=== PATIENT | female | born 1935 | race Caucasian/White ===

== ENCOUNTER 2016-06-05 15:34 | Observation (INO) | payer MEDICARE, OTHER ==
[~2016-06-05] VITALS: Ht 170.2 cm; Wt 90.9 kg
[2016-06-05] MEDS ORDERED: HYDROCHLOROTH12.5 M1 PO (16:11)
[2016-06-05] MEDS ORDERED: SYNTHROID137 MCG PO (16:11)
[2016-06-05 16:12] VITALS: BP 139/49; Ht 170.2 cm; Wt 90.9 kg
--- NOTE | 2016-06-05 16:26 | NUR ---
PT HERE DIRECT ADMIT. PT SITTING UP IN BED RESTING WITH AT BEDSIDE. ADMISSION ORDERS BEING ACKNOWLEDGED. SHIFT ASSESSMENT COMPLETED. WILL CONTINUE WITH PLAN OF CARE.
[2016-06-05 17:10] LABS: ALBUMIN 3.5 g/dL (3.4-5.0); ALKALINE PHOSPHATASE 87 U/L (46-116); ALT (SGPT) 22 U/L (10-68); BILIRUBIN - TOTAL 0.25 mg/dL (0.2-1.3); CALC OSMOLALITY 284 mosm/kg (275-300); CALCIUM 8.7 mg/dL (8.5-10.1); CARBON DIOXIDE 25.6 mmol/L (21.0-32.0); CHLORIDE - SERUM 105 mmol/L (98-107); CREATININE - SERUM 0.9 mg/dL (0.6-1.3); GLUCOSE 109 mg/dL (74-106); POTASSIUM - SERUM 3.4 mmol/L (3.5-5.1); PROTEIN - SERUM 7.4 g/dL (6.4-8.2); SODIUM 141 mmol/L (136-145); UREA NITROGEN 20 mg/dL (7-18); eGFR NON AFRICAN AMERICAN 64 mL/min (90-120)
[2016-06-05 17:24] LABS: CKMB 0.8 U/L (0.0-3.6); CREATINE KINASE 80 UL (21-215); T4 THYROXINE 8.4 ug/dL (4.7-13.3); THYROID STIMULATING HORMONE 0.63 uIU/mL (0.36-3.74)
[2016-06-05 17:29] LABS: TROPONIN-I < 0.017 ng/mL (0.000-0.060)
--- NOTE | 2016-06-05 17:43 | HP ---
PATIENT: FLACO HUERTAS MEDICAL RECORD: [id number] ACCOUNT: [id number] LOCATION:[address] : 37 ADMISSION DATE: 06/05/16 HISTORY AND PHYSICAL EXAMINATION REASON FOR ADMISSION: Chest and upper back and left arm pain. HISTORY OF PRESENT ILLNESS: The patient is a 80-year-old female with history of essential hypertension and hypothyroidism. She sees Dr. Victorino Hicks for her primary physician. She states that she had been in good health until approximately 2 weeks ago. She notes that at rest or with activity some discomfort in her upper arms, mainly her left arm. It was fleeting and would come and go. Two nights ago, she was sitting in a recliner before going to bed, she had severe pain in both upper arms, left greater than right and she could feel her heart pounding in her left arm. She then developed pain up in her upper back pain and it gradually ease off after a few hours of taking aspirin. Last night, she was pain free, but she came at the request of family members. The pain did not radiate to other areas. She had no associated shortness of breath, nausea, vomiting, or diaphoresis. She has been a little fatigued recently. She is a lifelong nonsmoker. She had essentially normal cardiac catheterization in January [address] Ernie Obando. She has had increased stress recently after her sister from a heart disease as well as leukemia. PAST MEDICAL HISTORY: Essential hypertension, osteoarthritis, hypothyroidism, postmenopausal, and macular degeneration. PAST SURGICAL HISTORY: She has had appendectomy, TAHBSO, benign left breast biopsy, and bilateral cataract surgery. SOCIAL HISTORY: She is , lifelong nonsmoker, nondrinker. She is very active with work and activities with her family. FAMILY HISTORY: Father of CA at 60, he was a smoker. Mother of CA at 66, she was a smoker. One sister at 80 from leukemia and CA. One brother had an CA at age 50; however, he was exposed to Agent [place] in [place]. CURRENT MEDICATIONS: Losartan 25 mg a day, HCTZ 12.5 mg q.a.m., and Synthroid ____ p.o. q.a.m. ALLERGIES: None known. REVIEW OF SYSTEMS: GENERAL: Mild fatigue without weight change or fever. HEENT: No recent new visual change, sinus congestion, or hearing difficulty or sore throat. RESPIRATORY: No exertional shortness of breath or cough. CARDIAC: Chest pain as mentioned above. Had bilateral arm and upper thoracic spine pain. Denies exertional symptoms. GASTROINTESTINAL: No recent dyspepsia, change in stools or blood per rectum or dysphagia. Denies history of gallbladder disease or ulcer disease. ENDOCRINE: Denies polyuria, polydipsia, heat or cold intolerance. NEUROLOGIC: No history of stroke, TIA, vascular headaches, or seizures. INTEGUMENT: No rash or itching. PSYCHIATRIC: Denies depress mood. HISTORY AND PHYSICAL [id number] FLACO HUERTAS MUSCULOSKELETAL: Has occasional arthralgias in her shoulders and hips, but nothing severe. PHYSICAL EXAMINATION: VITAL SIGNS: Her height is 5 feet 7-1/2 inches, her weight 192.8 pounds, BMI is 29.7. Heart rate is 90 and regular and blood pressure of 132/62. GENERAL: Alert and oriented, in no acute distress. HEENT: Normocephalic. Eyes are clear with lens implants OU. Sclerae nonicteric. Oropharynx unremarkable. NECK: No bruits or masses. CHEST: Chest wall nontender to palpation. Chest is clear. HEART: Regular rate without MGR. PMI appropriate. ABDOMEN: Soft and nontender. No organomegaly. EXTREMITIES: No CC&E. She has good range of motion of both shoulders without pain elicited. INTEGUMENT: No rash appreciated. DIAGNOSTIC DATA: EKG in the office shows sinus rhythm with a poor anterior R waves suggesting an old ____ CA. There is no old EKG to compare. Cardiac catheterization 01/18/2017 showed no significant coronary artery disease and normal ejection fraction. ASSESSMENT: 1. Atypical upper chest, back and arm pain suggesting angina. 2. Significant family history for heart disease. 3. Hypertension. 4. History of mild hyperlipidemia with cholesterol of 204 and LDL of 137. 5. Macular degeneration. 6. Postmenopausal. 7. Hypothyroidism. PLAN: Due to the patient's symptoms, which were concerning for both of these, I will admit for serial cardiac enzymes, cardiac monitoring and potential cardiac consult. TRANSINT:[id number] Voice Confirmation ID: [id number] DOCUMENT ID: [id number] ROQUE FALK MD at 1743 CC: [id number] DICTATION DATE: 06/05/16 1520 ASSEMBLY OPERATOR: 06/05/16 1652 ADM IN [facility] [address] [id number]
--- NOTE | 2016-06-05 19:36 | NUR ---
RESUMED CARE OF PT, LYING IN BED RESPIRATIONS EVEN AND UNLABORED ON ROOM AIR. 64 SR ON TELEMETRY. PLAN OF CARE DISCUSSED. CALL LIGHT IN REACH. SEE NURSE ASSESSMENT. WILL CONTINUE TO MONITOR.
[2016-06-05 20:24] VITALS: BP 155/62
[2016-06-05 22:28] LABS: APPEARANCE CLEAR (CLEAR); COLOR YELLOW (YELLOW)
[2016-06-05 22:29] LABS: BILIRUBIN NEGATIVE (NEGATIVE); GLUCOSE NEGATIVE (NEGATIVE); KETONE NEGATIVE (NEGATIVE); LEUKOCYTE ESTERASE NEGATIVE (NEGATIVE); NITRITE NEGATIVE (NEGATIVE); PROTEIN NEGATIVE (NEGATIVE); UROBILINOGEN NORMAL (NORMAL)
[2016-06-05 23:20] LABS: CKMB 1.1 U/L (0.0-3.6); CREATINE KINASE 88 UL (21-215)
[2016-06-05 23:21] LABS: TROPONIN-I < 0.017 ng/mL (0.000-0.060)
[2016-06-06 00:14] VITALS: BP 140/59
--- NOTE | 2016-06-06 00:36 | NUR ---
AUTO CARRIER DRIVER AT BEDSIDE TO OBTAIN VITALS, CALL LIGHT IN REACH. WILL CONTINUE WITH PLAN OF CARE.
--- NOTE | 2016-06-06 03:10 | NUR ---
LYING IN BED WITH EYES CLOSED, CALL LIGHT IN REACH. WILL CONTINUE TO MONITOR.
[2016-06-06 04:44] VITALS: BP 153/69
[2016-06-06 06:03] LABS: AMYLASE - SERUM 55 U/L (25-115); CALC OSMOLALITY 285 mosm/kg (275-300); CALCIUM 8.7 mg/dL (8.5-10.1); CARBON DIOXIDE 26.1 mmol/L (21.0-32.0); CHLORIDE - SERUM 106 mmol/L (98-107); CHOL - HDL RATIO 3.1 ratio (2.3-4.1); CHOLESTEROL, TOTAL 183 mg/dL (0-200); CREATINE KINASE 62 UL (21-215); CREATININE - SERUM 0.9 mg/dL (0.6-1.3); GLUCOSE 101 mg/dL (74-106); HDL CHOLESTEROL 59 mg/dL (32-96); LDL CHOLESTEROL 115 mg/dL (0-100); LDL-HDL RATIO 1.9 ratio (1.5-3.5); LIPASE 143 U/L (73-393); POTASSIUM - SERUM 3.3 mmol/L (3.5-5.1); SODIUM 143 mmol/L (136-145); TRIGLYCERIDE 46 mg/dL (30-200); UREA NITROGEN 16 mg/dL (7-18); eGFR NON AFRICAN AMERICAN 64 mL/min (90-120)
[2016-06-06 06:09] LABS: TROPONIN-I < 0.017 ng/mL (0.000-0.060)
--- NOTE | 2016-06-06 06:34 | NUR ---
NO CHANGES FROM PREVIOUS ASSESSMENT, EKG OBTAINED. PT HAS REMAINED FREE OF CHEST PAIN AND CARDIAC ENZYMES HAVE ALL BEEN NEGATIVE. CALL LIGHT IN REACH. WILL CONTINUE TO MONITOR.
[2016-06-06 08:26] VITALS: BP 114/65
[2016-06-06 11:56] VITALS: BP 137/66
[2016-06-06] MEDS ORDERED: COZAAR25 MG PO (12:41)
--- NOTE | 2016-06-06 14:10 | NUR ---
REVIEWED DISCHARGE INSTRUCTIONS PT STATES UNDERSTANDING COPY GIVEN TO PT PT DISCHARGED HOME WITH ALL PERSONAL BELONGINGS IN STABLE CONDITIONLEFT UNIT WALKING REFUSED W/C
== END 2016-06-06 14:10 | disposition home or self-care (01) ==
LOC: OBSVTIME 15:34 → D.M2 15:34
PROVIDERS: ADMIT Family Medicine
DX: I25.10 Atherosclerotic heart disease of native coronary artery without angina pectoris (principal); I10 Essential (primary) hypertension; E03.9 Hypothyroidism, unspecified; M19.90 Unspecified osteoarthritis, unspecified site; Z78.0 Asymptomatic menopausal state; H35.30 Unspecified macular degeneration

== ENCOUNTER → 2019-07-12 07:31 | Outpatient (CLI) | payer MEDICARE, OTHER ==
[2016-06-05 16:12] VITALS: BMI 31.4
[~2019-07-12 07:31] MED LIST: COZAAR25 MG PO; HYDROCHLOROTH12.5 M1 PO; SYNTHROID137 MCG PO
== END | disposition home or self-care (01) ==
LOC: D.US 07:31
PROVIDERS: ATTEND Family Medicine
DX: R10.84 Generalized abdominal pain (principal); R63.4 Abnormal weight loss

== ENCOUNTER → 2019-07-23 08:47 | Outpatient (CLI) | payer MEDICARE, OTHER ==
[2016-06-05 16:12] VITALS: BMI 31.4
== END | disposition home or self-care (01) ==
LOC: D.NM 08:47
PROVIDERS: ATTEND Family Medicine
DX: R10.84 Generalized abdominal pain (principal)

== ENCOUNTER → 2019-08-06 13:17 | Outpatient (CLI) | payer MEDICARE, OTHER ==
[2016-06-05 16:12] VITALS: BMI 31.4
== END | disposition home or self-care (01) ==
LOC: D.CT 13:17
PROVIDERS: ATTEND Internal Medicine Gastroenterology
DX: R63.4 Abnormal weight loss (principal); R43.2 Parageusia; R93.9 Diagnostic imaging inconclusive due to excess body fat of patient; R10.84 Generalized abdominal pain